=== PATIENT | male | born 1990 | race Caucasian/White ===

== ENCOUNTER 2017-03-24 12:47 | Emergency (ER) | payer SELFPAY ==
[2017-03-24] MEDS ORDERED: HYDROcodone/Acetaminophen 10/325 mg Tablet ONE (14:37)
[2017-03-24] MEDS ORDERED: Sulfameth/Trimethoprim DS 800-160mg TAB ONE (14:38)
[2017-03-24] MEDS ORDERED: Clindamycin 300 MG/2 ML VIAL ONE (14:38)
[2017-03-24] MEDS ORDERED: Clindamycin 150 MG CAP ONE (14:38)
== END 2017-03-24 14:54 | disposition home or self-care (01) ==
LOC: NAV ERS 12:47
DX: L03.116 Cellulitis of left lower limb (principal); F17.210 Nicotine dependence, cigarettes, uncomplicated
CPT/HCPCS: 99283; J3490